=== PATIENT | female | born 1965 | race Asian ===

== ENCOUNTER → 2018-08-07 | Outpatient (CLI) | payer OTHER | LOC: FIMAGING 08:31 | PROVIDERS: ATTEND Internal Medicine | DX: Z12.31 Encounter for screening mammogram for malignant neoplasm of breast (principal); E28.39 Other primary ovarian failure; Z13.820 Encounter for screening for osteoporosis; Z78.0 Asymptomatic menopausal state; M54.9 Dorsalgia, unspecified; M85.80 Other specified disorders of bone density and structure, unspecified site ==